=== PATIENT | female | born 1995 | race Caucasian/White ===

== ENCOUNTER 2021-07-09 20:02 | Emergency (ER) | payer BC, OTHER ==
[~2021-07-09] VITALS: Ht 152.4 cm; Wt 54.4 kg
--- NOTE | 2021-07-09 20:06 | NUR ---
Patient to ER bed 07 to gown for evaluation. Side rails up.
[2021-07-09 20:07] VITALS: BP_SYST 122
--- NOTE | 2021-07-09 20:10 | NUR ---
Patient BIB by family from home. C/O vaginal bleeding x today. Patient reported, had transvaginal ultrasound and pelvic exam yesterday, patient had burning sensation, felt like cut pain, small bright red vaginal bleeding, concerns about infection.
[2021-07-09 20:49] LABS: BILIRUBIN,URINE NEGATIVE (NEGATIVE); BLOOD, URINE 2+ (NEGATIVE); CLARITY/URINE SL CLOUDY (CLEAR); COLOR,URINE YELLOW (YELLOW); GLUCOSE,URINE NEGATIVE (NEGATIVE); KETONES,URINE TRACE (NEGATIVE); LEUKOCYTE ESTERASE ,URINE 2+ (NEGATIVE); NITRITE, URINE NEGATIVE (NEGATIVE); PROTEIN URINE NEGATIVE (NEGATIVE)
--- NOTE | 2021-07-09 20:57 | NUR ---
ER Dr. Marinelli at bedside examining patient.
[2021-07-09 21:09] LABS: BACTERIA,URINE MODERATE /HPF (None Seen); WBC,URINE 80-100 /HPF (0-3)
[2021-07-09 21:10] LABS: MUCUS,URINE 1+ /LPF (None Seen)
--- NOTE | 2021-07-09 21:19 | NUR ---
Pelvic exam performed by Dr. Marinelli with LETHA Venegas at bedside for entire examination. Patient tolerated procedure well. Patient assisted to position of comfort after examination.
[2021-07-09 21:41] VITALS: BP_SYST 122
--- NOTE | 2021-07-09 21:41 | NUR ---
Patient given written and verbal discharge instructions and verbalizes understanding. ER MD discussed with patient the results and treatment provided. Patient in stable condition. ID arm band removed. No Rx given. Patient educated on pain management and to follow up with PMD. Pain Scale 0/10. Opportunity for questions provided and answered.
== END 2021-07-09 21:41 | disposition home or self-care (01) ==
LOC: SED 20:02
DX: N76.0 Acute vaginitis (principal)
CPT/HCPCS: 81000; 81025; 87086; 99284